=== PATIENT | female | born 1970 | race Caucasian/White ===

== ENCOUNTER 2022-04-03 07:52 | Day surgery (SDC) | payer BC ==
[~2022-04-03 07:52] MED LIST: Lactated Ringers 1,000 ML IV SCH; Sodium Chloride 0.9% 10 ML Syringe FLUSH PRN
[2022-04-03] MEDS ORDERED: Lidocaine 2% 100 MG/5 ML Syringe IVPUSH ONE (07:53)
[2022-04-03] MEDS ORDERED: Propofol 200 MG/20 ML SDV IV ONE (07:53)
== END 2022-04-03 10:13 | disposition home or self-care (01) ==
LOC: FB.SDS 07:52
PROVIDERS: ATTEND Surgery
DX: Z12.11 Encounter for screening for malignant neoplasm of colon (principal); K63.5 Polyp of colon; F32.A Depression, unspecified; Z87.891 Personal history of nicotine dependence
CPT/HCPCS: 45385; 88305; J2704; J7120